=== PATIENT | male | born 1960 | race Hispanic/Latino ===

== ENCOUNTER 2021-06-06 09:24 | Emergency (ER) | payer BC, OTHER ==
[~2021-06-06] VITALS: Ht 167.6 cm; Wt 88.5 kg
[2021-06-06] MEDS ORDERED: TETANUS/DIPHTHERIA TOX ADULT 0.5 ML SYR IM STA (10:17)
[2021-06-06] MEDS ORDERED: MUPIROCIN 2% OINT 22 GM TUBE TOP ONE (10:30)
[2021-06-06] MEDS ORDERED: CLINDAMYCIN PHOS 600 MG/ 4 ML VIAL IM ONE (10:30)
[2021-06-06] MEDS ORDERED: CLINDAMYCIN PHOS 600 MG/ 4 ML VIAL ONE (11:02)
[2021-06-06] MEDS ORDERED: TETANUS/DIPHTHERIA TOX ADULT 0.5 ML SYR ONE (11:03)
[2021-06-06] MEDS ORDERED: IBUPROFEN IB200 MG PO (11:20)
[2021-06-06] MEDS ORDERED: ACETAMINOPHEN-1 EAC4 PO (11:20)
[2021-06-06] MEDS ORDERED: DOXYCYCLINE HY100 MG PO (11:20)
== END 2021-06-06 11:33 | disposition home or self-care (01) ==
LOC: FSED 09:32
DX: S92.422A Displaced fracture of distal phalanx of left great toe, initial encounter for closed fracture (principal); S92.532A Displaced fracture of distal phalanx of left lesser toe(s), initial encounter for closed fracture; W20.8XXA Other cause of strike by thrown, projected or falling object, initial encounter; Y99.0 Civilian activity done for income or pay; E11.9 Type 2 diabetes mellitus without complications
CPT/HCPCS: 90714; 99284

== ENCOUNTER 2023-11-25 10:07 | Inpatient (IN) | payer OTHER ==
[2023-11-16 10:18] LABS: BASOPHILS % 0.7 % (0.0-1.0); EOSINOPHILS # (AUTO) 0.2 (0.0-0.4); EOSINOPHILS % 3.3 % (0.0-6.0); HEMATOCRIT 43.9 % (38.2-49.6); HEMOGLOBIN 13.9 g/dL (14.0-18.0); LYMPHOCYTES # (AUTO) 1.1 (1.0-3.2); LYMPHOCYTES % 19.9 % (18.0-39.1); MEAN CORPUSCULAR HEMOGLOBIN 26.8 pg (28-32); MEAN CORPUSCULAR HGB CONC 31.7 g/dL (31-35); MEAN CORPUSCULAR VOLUME 84.7 fL (81-99); MONOCYTES # (AUTO) 0.5 (0.2-0.8); MONOCYTES % 9.1 % (4.4-11.3); NEUTROPHILS # (AUTO) 3.8 (2.1-6.9); NEUTROPHILS % 66.7 % (38.7-80.0); PLATELET COUNT 258 x10e3/uL (140-360); RED BLOOD COUNT 5.18 x10e6/uL (4.3-5.7); RED CELL DISTRIBUTION WIDTH 16.1 % (11.7-14.4); WHITE BLOOD COUNT 5.74 x10e3/uL (4.8-10.8)
[2023-11-16 10:45] LABS: ANION GAP 14.4 mmol/L (8-16); CALCIUM 9.3 mg/dL (8.4-10.2); CREATININE, SERUM 0.93 mg/dL (0.72-1.25); POTASSIUM 4.4 mmol/L (3.5-5.1)
[~2023-11-25] VITALS: Ht 167.6 cm; Wt 88.5 kg
[~2023-11-25 10:07] MED LIST: ACETAMINOPHEN-1 EAC4 PO; ATORVASTATIN CA20 MG PO; DIOVAN80 MG PO; DOXYCYCLINE HY100 MG PO; FARXIGA10 MG PO; FINASTERIDE5 MG PO; FLOMAX0.4 MG PO; IBUPROFEN IB200 MG PO; METFORMIN HCL1000 MG PO; MOUNJARO2.5 MG/0.5 SC; PIOGLITAZONE15 MG PO; TRESIBA FL100 UNIT/1 SC; TRICOR145 MG PO
[2023-11-25] MEDS ORDERED: GENTAMICIN 80MG/NS 100 ML 200 ML IV ONE (12:27)
[2023-11-25] MEDS ORDERED: CEFTRIAXONE 1 GM VIAL ONE (12:27)
[2023-11-25] MEDS ORDERED: LACTATED RINGER'S 0 ML ONE (12:28)
[2023-11-25] MEDS ORDERED: SODIUM CHLORIDE 0.9% 1000ML 1,000 ML ONE ×2 (12:36→17:25)
[2023-11-25] MEDS ORDERED: IOPAMIDOL 300MG/ML 100 ML INFUS..BTL IV ONE (14:52)
[2023-11-25] MEDS ORDERED: FENTANYL CITRATE/PF 100MCG/2 ML INJ ONE (15:29)
[2023-11-25] MEDS ORDERED: ONDANSETRON HCL INJ 2MG/ML 2ML 2 MG/ML VIAL IV PRN (15:45)
[2023-11-25] MEDS ORDERED: DIPHENHYDRAMINE HCL 25 MG CAP PO PRN (15:45)
[2023-11-25] MEDS ORDERED: ACETAMINOPHEN 1000 MG/100 ML IV PRN (15:45)
[2023-11-25 17:36] LABS: BASOPHILS # (AUTO) 0.1 (0.0-0.1); BASOPHILS % 0.5 % (0.0-1.0); EOSINOPHILS # (AUTO) 0.1 (0.0-0.4); EOSINOPHILS % 0.8 % (0.0-6.0); HEMATOCRIT 41.5 % (38.2-49.6); HEMOGLOBIN 13.5 g/dL (14.0-18.0); LYMPHOCYTES # (AUTO) 1.1 (1.0-3.2); LYMPHOCYTES % 10.5 % (18.0-39.1); MEAN CORPUSCULAR HEMOGLOBIN 27.3 pg (28-32); MEAN CORPUSCULAR HGB CONC 32.5 g/dL (31-35); MONOCYTES # (AUTO) 0.4 (0.2-0.8); MONOCYTES % 3.4 % (4.4-11.3); NEUTROPHILS # (AUTO) 9.2 (2.1-6.9); NEUTROPHILS % 84.6 % (38.7-80.0); PLATELET COUNT 225 x10e3/uL (140-360); RED BLOOD COUNT 4.94 x10e6/uL (4.3-5.7); RED CELL DISTRIBUTION WIDTH 16.1 % (11.7-14.4); WHITE BLOOD COUNT 10.82 x10e3/uL (4.8-10.8)
[2023-11-25 17:49] LABS: CALCIUM 8.1 mg/dL (8.4-10.2); CREATININE, SERUM 0.84 mg/dL (0.72-1.25)
[2023-11-25] MEDS ORDERED: DEXAMETHASONE SOD PHOS INJ 4 MG/ML SDV ONE ×2 (17:57→18:00)
[2023-11-25] MEDS ORDERED: PROPOFOL IV EMULSION 10 MG/ML 20 ML VIAL ONE ×2 (17:57→18:00)
[2023-11-25] MEDS ORDERED: ONDANSETRON HCL INJ 2MG/ML 2ML 2 MG/ML VIAL ONE ×2 (17:57→18:00)
[2023-11-25] MEDS ORDERED: LIDOCAINE HCL 2% LOCAL INJ 5 ML SDV VIAL INJ ONE ×2 (17:57→18:00)
[2023-11-25] MEDS ORDERED: EPHEDRINE SULFATE INJ 50 MG/ML VIAL ONE (17:57)
[2023-11-25] MEDS: PHENAZOPYRIDINE HCL 100 MG TAB PO PRN (18:00)
[2023-11-25] MEDS: ACETAMINOPHEN/CODEINE 300MG - 30MG TAB PO PRN (18:00)
[2023-11-25] MEDS ORDERED: ACETAMINOPHEN/CODEINE 300MG - 30MG TAB ONE (18:02)
[2023-11-25] MEDS ORDERED: PHENAZOPYRIDINE HCL 100 MG TAB ONE (18:03)
[2023-11-25 18:20] VITALS: BP 154/85; PULSE 92; RESP 14; TEMP 97.6; O2SAT 96
[2023-11-25] MEDS: SODIUM CHLORIDE 0.9% 1000ML 1,000 ML IV SCH (18:43)
[2023-11-25 20:00] VITALS: BP 128/82; PULSE 78; RESP 18; TEMP 97.8; O2SAT 97
[2023-11-26] VITALS (9 sets, daily range): BP systolic 102–132; BP diastolic 60–70; PULSE 70–78; RESP 18–20; TEMP 97.1–98.4; O2SAT 95–99
[2023-11-26] MEDS ORDERED: SODIUM CHLORIDE 0.9% 1000ML 1,000 ML ONE (05:31)
[2023-11-26 06:07] LABS: BASOPHILS % 0.2 % (0.0-1.0); HEMATOCRIT 43.7 % (38.2-49.6); HEMOGLOBIN 13.3 g/dL (14.0-18.0); LYMPHOCYTES # (AUTO) 0.6 (1.0-3.2); LYMPHOCYTES % 7.1 % (18.0-39.1); MEAN CORPUSCULAR HEMOGLOBIN 26.2 pg (28-32); MEAN CORPUSCULAR HGB CONC 30.4 g/dL (31-35); MONOCYTES # (AUTO) 0.6 (0.2-0.8); MONOCYTES % 6.8 % (4.4-11.3); NEUTROPHILS # (AUTO) 7.7 (2.1-6.9); NEUTROPHILS % 85.5 % (38.7-80.0); PLATELET COUNT 240 x10e3/uL (140-360); RED BLOOD COUNT 5.08 x10e6/uL (4.3-5.7); RED CELL DISTRIBUTION WIDTH 15.9 % (11.7-14.4); WHITE BLOOD COUNT 9.01 x10e3/uL (4.8-10.8)
[2023-11-26 06:22] LABS: ANION GAP 15.3 mmol/L (8-16); CREATININE, SERUM 0.77 mg/dL (0.72-1.25); POTASSIUM 4.3 mmol/L (3.5-5.1)
[2023-11-26] MEDS ORDERED: CEFTRIAXONE 1 GM VIAL ONE (08:45)
[2023-11-26] MEDS ORDERED: ACETAMINOPHEN 325 MG TAB PO PRN (09:15)
[2023-11-26] MEDS ORDERED: DEXTROSE 50% SYRINGE 50 ML IV PRN (09:15)
[2023-11-26] MEDS: INSULIN LISPRO 100 UNIT/1 ML 3ML VIAL SQ SCH (11:30)
[2023-11-26] MEDS: FINASTERIDE 5 MG TAB PO SCH (12:25)
[2023-11-26] MEDS: TAMSULOSIN HCL 0.4 MG CAP PO SCH (16:52)
[2023-11-26] MEDS: PIOGLITAZONE HCL 15 MG TAB PO SCH (20:40)
[2023-11-26] MEDS: VALSARTAN 80 MG TAB PO SCH (20:41)
[2023-11-26] MEDS: ATORVASTATIN 20 MG TAB PO SCH (20:41)
[2023-11-26] MEDS: Insulin Degludec (Tresiba Flextouch U-100) SC SCH (20:45)
[2023-11-27] VITALS (10 sets, daily range): BP systolic 106–130; BP diastolic 68–77; PULSE 68–76; RESP 18–20; TEMP 98.2–98.9; O2SAT 95–100
[2023-11-27 06:02] LABS: BASOPHILS % 0.6 % (0.0-1.0); EOSINOPHILS # (AUTO) 0.2 (0.0-0.4); EOSINOPHILS % 2.3 % (0.0-6.0); HEMATOCRIT 37.7 % (38.2-49.6); HEMOGLOBIN 12.3 g/dL (14.0-18.0); LYMPHOCYTES # (AUTO) 1.2 (1.0-3.2); LYMPHOCYTES % 18.4 % (18.0-39.1); MEAN CORPUSCULAR HEMOGLOBIN 27.3 pg (28-32); MEAN CORPUSCULAR HGB CONC 32.6 g/dL (31-35); MEAN CORPUSCULAR VOLUME 83.8 fL (81-99); MONOCYTES # (AUTO) 0.7 (0.2-0.8); NEUTROPHILS # (AUTO) 4.5 (2.1-6.9); NEUTROPHILS % 68.5 % (38.7-80.0); PLATELET COUNT 210 x10e3/uL (140-360); RED CELL DISTRIBUTION WIDTH 16.2 % (11.7-14.4); WHITE BLOOD COUNT 6.51 x10e3/uL (4.8-10.8)
[2023-11-27 06:27] LABS: CREATININE, SERUM 0.8 mg/dL (0.72-1.25)
[2023-11-27] MEDS ORDERED: FENOFIBRATE 145 MG TAB ONE (08:14)
[2023-11-27] MEDS ORDERED: FINASTERIDE 5 MG TAB ONE (08:15)
[2023-11-27] MEDS ORDERED: CEFTRIAXONE 1 GM VIAL ONE (08:15)
[2023-11-27] MEDS: FENOFIBRATE 145 MG TAB PO SCH (08:53)
[2023-11-27] MEDS ORDERED: TAMSULOSIN HCL 0.4 MG CAP ONE (15:14)
[2023-11-28] VITALS: BP 134/71; PULSE 71; RESP 18; TEMP 98.6; O2SAT 97
[2023-11-28 04:00] VITALS: BP 122/63; PULSE 85; RESP 20; TEMP 98.9; O2SAT 96
[2023-11-28 05:40] LABS: BASOPHILS % 0.6 % (0.0-1.0); EOSINOPHILS # (AUTO) 0.2 (0.0-0.4); EOSINOPHILS % 2.3 % (0.0-6.0); HEMOGLOBIN 12.4 g/dL (14.0-18.0); LYMPHOCYTES # (AUTO) 1.1 (1.0-3.2); MEAN CORPUSCULAR HEMOGLOBIN 27.4 pg (28-32); MEAN CORPUSCULAR HGB CONC 32.6 g/dL (31-35); MEAN CORPUSCULAR VOLUME 84.1 fL (81-99); MONOCYTES # (AUTO) 0.7 (0.2-0.8); MONOCYTES % 10.1 % (4.4-11.3); NEUTROPHILS % 71.9 % (38.7-80.0); PLATELET COUNT 214 x10e3/uL (140-360); RED BLOOD COUNT 4.52 x10e6/uL (4.3-5.7); RED CELL DISTRIBUTION WIDTH 15.9 % (11.7-14.4)
[2023-11-28 06:19] LABS: ANION GAP 11.2 mmol/L (8-16); CALCIUM 8.6 mg/dL (8.4-10.2); CREATININE, SERUM 0.94 mg/dL (0.72-1.25); POTASSIUM 4.2 mmol/L (3.5-5.1)
[2023-11-28 07:08] VITALS: PULSE 72; RESP 18; O2SAT 96
[2023-11-28 08:00] VITALS: BP 117/78; PULSE 90; RESP 16; TEMP 98.6; O2SAT 100
[2023-11-28] MEDS ORDERED: FENOFIBRATE 145 MG TAB ONE ×2 (09:25→11:30)
[2023-11-28] MEDS ORDERED: FINASTERIDE 5 MG TAB ONE ×2 (09:26→11:30)
[2023-11-28] MEDS ORDERED: CEFTRIAXONE 1 GM VIAL ONE ×2 (09:26→11:30)
[2023-11-28 09:34] VITALS: BP 117/78; PULSE 90; RESP 16; TEMP 98.6; O2SAT 100
[2023-11-28] MEDS ORDERED: PIOGLITAZONE HCL 15 MG TAB ONE (11:30)
[2023-11-28] MEDS ORDERED: Sodium Chloride 0.9% 50ML Bag ONE (11:30)
[2023-11-28] MEDS ORDERED: TAMSULOSIN HCL 0.4 MG CAP ONE (11:30)
[2023-11-28] MEDS ORDERED: ATORVASTATIN 20 MG TAB ONE (11:30)
[2023-11-28] MEDS ORDERED: VALSARTAN 80 MG TAB ONE (11:30)
== END 2023-11-28 10:37 | disposition home or self-care (01) | DRG 713 ==
LOC: OR 10:07 → PACU V 15:44 → MED/SURG 18:24
PROVIDERS: ADMIT Internal Medicine; ATTEND Internal Medicine
PROC: BT161ZZ Fluoroscopy of Right Ureter using Low Osmolar Contrast (ICD-10-PCS; 2023-11-25)
PROC: BT171ZZ Fluoroscopy of Left Ureter using Low Osmolar Contrast (ICD-10-PCS; 2023-11-25)
PROC: 0VT08ZZ Resection of Prostate, Via Natural or Artificial Opening Endoscopic (ICD-10-PCS; principal; 2023-11-25 15:07)
PROC: 0T7D8ZZ Dilation of Urethra, Via Natural or Artificial Opening Endoscopic (ICD-10-PCS; 2023-11-25 15:07)
DX: N40.1 Benign prostatic hyperplasia with lower urinary tract symptoms (principal); N13.8 Other obstructive and reflux uropathy; R33.8 Other retention of urine; R31.0 Gross hematuria; Z79.82 Long term (current) use of aspirin; E11.9 Type 2 diabetes mellitus without complications; I10 Essential (primary) hypertension; E78.5 Hyperlipidemia, unspecified; D64.9 Anemia, unspecified; Z79.4 Long term (current) use of insulin; Z79.84 Long term (current) use of oral hypoglycemic drugs; Z83.3 Family history of diabetes mellitus; E66.9 Obesity, unspecified; E83.51 Hypocalcemia
CPT/HCPCS: 36415; 74420; 80048; 82948; 83735; 85025; 88304; 88305; 93005; 94799; C1758; J0696; J1100; J1580; J2001; J2405; J7030; Q9967

== ENCOUNTER → 2024-04-04 | Day surgery (SDC) | payer OTHER ==
[~2024-04-04] MED LIST changes: +FENTANYL CITRATE/PF 100MCG/2 ML INJ ONE; +GLYCOPYRROLATE INJ 0.2 MG/ML VIAL ONE; +HYOSCYAMINE SULFATE 0.5 MG/ML INJ ONE; +LIDOCAINE HCL 2% LOCAL INJ 5 ML SDV VIAL INJ ONE; +PROPOFOL IV EMULSION 10 MG/ML 20 ML VIAL ONE; +PROPOFOL IV EMULSION 10 MG/ML 50 ML VIAL IV ONE
[2024-04-04] MEDS: LACTATED RINGER'S 1,000 ML ONE (10:35)
[2024-04-04 12:31] VITALS: TEMP 97
[2024-04-04 12:55] VITALS: BP 117/74; PULSE 73; RESP 18; O2SAT 99
== END | disposition home or self-care (01) ==
LOC: OR 09:51
PROVIDERS: ATTEND Internal Medicine Gastroenterology
DX: D64.9 Anemia, unspecified (principal); D3A.8 Other benign neuroendocrine tumors; D12.3 Benign neoplasm of transverse colon; K62.1 Rectal polyp; K31.7 Polyp of stomach and duodenum; K29.80 Duodenitis without bleeding; K29.50 Unspecified chronic gastritis without bleeding; K31.A0 Gastric intestinal metaplasia, unspecified; K31.89 Other diseases of stomach and duodenum; K59.00 Constipation, unspecified; K64.8 Other hemorrhoids; E11.9 Type 2 diabetes mellitus without complications; I10 Essential (primary) hypertension; E78.5 Hyperlipidemia, unspecified; N40.0 Benign prostatic hyperplasia without lower urinary tract symptoms; Z79.4 Long term (current) use of insulin; Z79.85 Long-term (current) use of injectable non-insulin antidiabetic drugs; Z79.84 Long term (current) use of oral hypoglycemic drugs; Z79.899 Other long term (current) drug therapy
CPT/HCPCS: 43239; 45385; J1980; J2001; J2470; J2704 ×2; J3010; J7121; 45378